=== PATIENT | male | born 1980 | race Caucasian/White ===

== ENCOUNTER 2018-04-02 19:00 | Emergency (ER) | payer BC ==
[2018-04-02] MEDS ORDERED: CEFTRIAXONE 1GM/50ML BAG 1 GM/50 ML BAG IVPB ONE (19:17)
--- NOTE | 2018-04-02 19:26 | Emergency Department Record ---
History of Present Illness - General Chief Complaint: Animal Bite Stated Complaint: DOG BITE, INFECTION Time Seen by Provider: 04/02/18 19:13 Source: Patient Mode of Arrival: Ambulatory Limitations: No limitations - History of Present Illness Initial Comments: The patient is here due to a dog bite to the R thumb from 4 days ago. It did get infected and he did see his PCP 2 days ago and was started on oral Augmetin and was given a Td shot. Tonight he bumped the R thumb and the bite opened up and purulence was expressed. He denies any new pain or swelling and has had no streaking up the R thumb to the R hand. Complaint: Animal bite Onset/Timin -: Days(s) Animal: Dog Description: Household pet, Immunizations UTD Mechanism: Bite Associated Symptoms: Erythema - Related Data Patient Tetanus UTD (within 5 yrs): Yes Allergies Allergy/AdvReac Type Severity Reaction Status Date / Time No Known Allergies Allergy Unverified 07/02/17 18:40 Travel Screening - Travel/Exposure Within Last 30 Days Have you traveled within the last 30 days?: No Review of Systems Constitutional: Denies: Chills, Fever Eyes: Denies: Eye discharge ENT: Denies: Congestion Respiratory: Denies: Cough Past Medical History - SOCIAL HISTORY Smoking Status: Never smoker Alcohol Use: None Drug Use: None - RESPIRATORY Hx Respiratory Disorders: No - CARDIOVASCULAR Hx Cardio Disorders: No - NEURO Hx Neuro Disorders: No - GI Hx GI Disorders: No - Hx Genitourinary Disorders: No - ENDOCRINE Hx Endocrine Disorders: No - MUSCULOSKELETAL Hx Musculoskeletal Disorders: No - PSYCH Hx Psych Problems: No - HEMATOLOGY/ONCOLOGY Hx Hematology/Oncology Disorders: No Family Medical History Any Significant Family History?: No Physical Exam - General General Appearance: Alert, Oriented x3, Cooperative, No acute distress - Head Head exam: Atraumatic, Normocephalic - Extremities Extremities exam: Full ROM, Normal capillary refill, Tenderness (There is tenderness over the posterior and palmar thumb at the bite sites.). negative: Normal inspection (There is an open wound to the dorsal R thumb near the DIP joint. There is very mild drainage from the wound but no streaking proximally. There are 2 healing bite wounds to the anterior R thumb pad. The wounds do have glue present from the patient glueing the wounds this week. There is good ROM to the thumb with no pain and no signs of any flexor tenosynovitis.), Joint swelling Image of Hand: 1 - Area of superficial dog bite wound with mild drainage. There is no surrounding erythema but there is mild tenderness. - Neurological Neurological exam: Alert. negative: Motor sensory deficit Course Vital Signs 04/02/18 19:08 Temperature 98.5 F Pulse Rate 59 L Respiratory 20 Rate Blood Pressure 148/88 Pulse Ox 98 - Reevaluation(s) Reevaluation #1: The patient is doing well at this time. He will soak the thumb during the day and watch for signs of infection. I did discuss the case with Dr. Mccoy and he agrees with the plan. 04/02/18 20:02 Disposition Disposition: Discharge Clinical Impression: Dog bite Qualifiers: Encounter type: initial encounter Qualified Code(s): W54.0XXA - Bitten by dog, initial encounter Disposition: Home, Self-Care Condition: (2) Stable Instructions: Animal Bite (ED) Additional Instructions: Please soak the thumb during the day every few hours for 20 minutes then keep clean and dry. Continue the oral Abx. Please see Dr. Mccoy next week for any problems and return to the ER for any worsening pain, any swelling, worsening drainage or any redness or fever. Forms: Patient Portal Access Time of Disposition: 20:01 Quality - Quality Measures Quality Measures: N/A - Blood Pressure Screening View Details: Yes Does Patient Have Any of the Following: No Blood Pressure Classification: Pre-Hypertensive BP Reading Systolic Measurement: 148 Diastolic Measurement: 88 Screening for High Blood Pressure: < Pre-Hypertensive BP, F/U Documented > [ [id number]] Pre-Hypertensive Follow-up Interventions: Referral to alternative/primary care provider.
== END 2018-04-02 20:07 | disposition home or self-care (01) ==
LOC: ER 19:00
DX: S60.371A Other superficial bite of right thumb, initial encounter (principal); W54.0XXA Bitten by dog, initial encounter
CPT/HCPCS: 96365; 99283; 99284; J0696